=== PATIENT | female | born 1950 | race Caucasian/White ===

== ENCOUNTER 2016-08-19 14:05 | Emergency (ER) | payer OTHER ==
[~2016-08-19] VITALS: Ht 165.1 cm; Wt 99.2 kg
[~2016-08-19 14:05] MED LIST: AMARYL2 MG PO; Aspirin E.C. PO; CALCIUM 600 MG1 EACH PO; CELEXA10 MG PO; GLUCOPHAGE500 MG PO; LISINOPRIL-HCT1 EACH PO; LO-DOSE ASPIRIN81 M2 PO; Miralax, Glycolax PO; Norvasc PO; PRILOSEC20 MG PO; PROAIR HFA8.5 GM IH; PriLOSEC PO; REGLAN5 MG PO; Reglan PO; SIMVASTATIN40 M1 PO; ZESTORETIC 20-1 EAC1 NG; ZESTORETIC 20-1 EAC1 PO; ZESTORETIC,P1 TABLE2 PO; ZOCOR40 MG PO
[2016-08-19 15:10] LABS: EOSINOPHIL (%) 0.1 % (0-5); HEMATOCRIT 43.1 % (36.0-46.0); IMMATURE GRANULOCYTE (%) 0.4 % (0.0-0.7); IMMATURE GRANULOCYTE COUNT 0.1 K/uL; INSTRUMENT ABS NEUTROPHIL CT 11.3 K/uL; LYMPHOCYTE COUNT 1.7 K/uL (1.0-2.8); MCH 31.6 PG (29.0-34.0); MCHC 34.6 G/DL (30.0-36.0); MCV 91.3 FL (83-99); MEAN PLAT.VOLUME 10.3 uM^3 (9.5-12.4); MONOCYTE (%) 7.9 % (3-12); MONOCYTE COUNT 1.1 K/uL (0-0.8); NEUTROPHIL (%) 79.6 % (45-76); NEUTROPHIL COUNT 11.3 K/uL (1.8-6.4); PLATELET COUNT 236 K/uL (156-360); RBC DIS.WIDTH-CV 12.5 % (11.8-14.6); RBC DIS.WIDTH-SD 41.3 % (39-53); RED BLOOD COUNT 4.72 M/uL (3.80-5.20); WHITE BLOOD COUNT 14.1 K/uL (4.1-10.2)
[2016-08-19 15:22] LABS: CHLORIDE 98 mEq/L (99-109); POTASSIUM 3.8 mEq/L (3.7-5.4); SODIUM 137 mEq/L (136-147)
[2016-08-19 15:24] LABS: GLUCOSE 102 mg/dL (70-99)
[2016-08-19 15:25] LABS: ANION GAP 16 MEQ/L (2-14)
[2016-08-19 15:28] LABS: GFR ESTIMATE (CALCULATED) 53 mL/min/
[2016-08-19 15:29] LABS: UREA NITROGEN (BUN) 15 mg/dL (9-23)
[2016-08-19 20:00] VITALS: BP 109/57
== END 2016-08-19 22:12 | disposition short-term general hospital (02) ==
LOC: EME 14:05
PROVIDERS: Emergency Medicine
DX: L02.01 Cutaneous abscess of face (principal); L03.211 Cellulitis of face; I10 Essential (primary) hypertension; E78.5 Hyperlipidemia, unspecified; E11.9 Type 2 diabetes mellitus without complications; Z79.84 Long term (current) use of oral hypoglycemic drugs; Z79.82 Long term (current) use of aspirin
CPT/HCPCS: 70487; 80048; 85025; 87040; 99281; 99285; J0295; J0561; J2270; J2405; J7030; J7050